=== PATIENT | female | born 1995 | race African-American/Black ===

== ENCOUNTER → 2019-04-28 | Outpatient (CLI) | payer OTHER ==
[2019-04-28 13:15] LABS: BASO % 0.6 % (0.0-1.0); EOS # 0.1 10^3/uL (0.0-0.5); EOS % 2.8 % (0.0-3.0); HEMATOCRIT 40.8 % (36.0-47.0); HEMOGLOBIN 13.3 g/dl (12.0-15.5); LYMPH # 1.6 10^3/uL (1.5-5.0); MEAN CORPUSCULAR HEMOGLOBIN 30.4 pg (27.0-33.0); MEAN CORPUSCULAR HGB CONC 32.6 g/dl (32.0-36.5); MEAN CORPUSCULAR VOLUME 93.4 fl (80.0-96.0); MONO # 0.4 10^3/uL (0.0-0.8); MONO % 8.2 % (0.0-5.0); NEUTROPHILS # 2.8 10^3/uL (1.5-8.5); NEUTROPHILS % 56.2 % (36.0-66.0); PLATELET COUNT, AUTOMATED 300 10^3/uL (150-450); RED BLOOD COUNT 4.37 10^6/uL (4.00-5.40)
[2019-04-28 13:41] LABS: ALBUMIN 4.5 GM/DL (3.2-5.2); ALT/SGPT 23 U/L (12-78); BILIRUBIN,TOTAL 1.1 MG/DL (0.2-1.0); BLOOD UREA NITROGEN 12 MG/DL (7-18); CALCIUM LEVEL 9.9 MG/DL (8.5-10.1); CARBON DIOXIDE LEVEL 29 MEQ/L (21-32); CHLORIDE LEVEL 106 MEQ/L (98-107); CREATININE FOR GFR 0.83 MG/DL (0.55-1.30); FERRITIN 95 NG/ML (8-252); GLOMERULAR FILTRATION RATE > 60.0 (>60); GLUCOSE, FASTING 90 MG/DL (70-100); IRON (FE) 69 UG/DL (50-170); PERCENT SATURATION 20.2 % (13.2-45.0); POTASSIUM SERUM 4.6 MEQ/L (3.5-5.1); SODIUM LEVEL 139 MEQ/L (136-145); TOTAL IRON BINDING CAPACITY 342 UG/DL (250-450); TOTAL PROTEIN 9.1 GM/DL (6.4-8.2)
[2019-04-28 13:43] LABS: HEMOGLOBIN A1c 4.7 %
[2019-04-28 13:50] LABS: FOLLICLE STIMULATING HORMONE 9.7 mIU/mL; LUTEINIZING HORMONE 14.6 mIU/mL
== END ==
LOC: M LAB 12:37
PROVIDERS: ATTEND Physician Assistant
DX: E28.2 Polycystic ovarian syndrome (principal)

== ENCOUNTER → 2019-06-05 | Outpatient (REF) | payer OTHER | LOC: M LAB REF 16:52 | PROVIDERS: ATTEND Physician Assistant | DX: E28.2 Polycystic ovarian syndrome (principal) ==

== ENCOUNTER 2019-10-04 10:15 | Emergency (ER) | payer OTHER ==
[~2019-10-04] VITALS: Ht 157.5 cm; Wt 54.2 kg
[2019-10-04] MEDS ORDERED: ESTA0.25 (10:24)
[2019-10-04] MEDS ORDERED: RIZA10TA2 (10:24)
[2019-10-04] MEDS ORDERED: NORT10CA2 (10:24)
[2019-10-04] MEDS ORDERED: PYRI1TAB5 PO (11:57)
[2019-10-04] MEDS ORDERED: MACR100C43 PO (11:57)
[2019-10-04 12:05] VITALS: BP 122/88
[2019-10-04 12:15] LABS: CHLAMYDIA DNA AMPLIFICATION NEGATIVE (NEGATIVE); GC DNA AMPLIFICATION NEGATIVE (NEGATIVE)
== END 2019-10-04 12:06 | disposition home or self-care (01) ==
LOC: M ED 10:15
DX: N30.91 Cystitis, unspecified with hematuria (principal); E28.2 Polycystic ovarian syndrome; G43.909 Migraine, unspecified, not intractable, without status migrainosus; Z79.899 Other long term (current) drug therapy; Z79.3 Long term (current) use of hormonal contraceptives

== ENCOUNTER → 2019-10-09 | Outpatient (REF) | payer OTHER ==
[~2019-10-09] MED LIST: ESTA0.25; MACR100C43 PO; NORT10CA2; PYRI1TAB5 PO; RIZA10TA2
[2019-10-09 20:06] LABS: CHLAMYDIA DNA AMPLIFICATION NEGATIVE (NEGATIVE); GC DNA AMPLIFICATION NEGATIVE (NEGATIVE)
== END ==
LOC: M LAB REF 17:05
PROVIDERS: ATTEND Physician Assistant
DX: Z01.84 Encounter for antibody response examination (principal)

== ENCOUNTER → 2019-10-09 | Outpatient (CLI) | payer OTHER ==
[2019-10-09 13:29] LABS: HEPATITIS B SURFACE ANTIGEN NEGATIVE (NEGATIVE)
[2019-10-10 07:07] LABS: HERPES ZOSTER, VARICELLA IgG <135 index (Immune >165); MUMPS VIRUS IgG ANTIBODY <9.0 AU/mL (Immune >10.9)
== END ==
LOC: M LAB 11:36
PROVIDERS: ATTEND Physician Assistant
DX: Z01.84 Encounter for antibody response examination (principal)

== ENCOUNTER → 2019-10-21 | Outpatient (REF) | payer OTHER ==
[2019-10-21 19:19] LABS: CHLAMYDIA DNA AMPLIFICATION NEGATIVE (NEGATIVE); GC DNA AMPLIFICATION NEGATIVE (NEGATIVE)
== END ==
LOC: M LAB REF 16:56
PROVIDERS: ATTEND Family Medicine
DX: N76.0 Acute vaginitis (principal); R30.0 Dysuria

== ENCOUNTER → 2019-10-28 | Outpatient (CLI) | payer OTHER | LOC: M WUC 11:18 | PROVIDERS: ATTEND Physician Assistant | DX: Z11.1 Encounter for screening for respiratory tuberculosis (principal) ==